=== PATIENT | female | born 1975 | race Caucasian/White ===

== ENCOUNTER 2020-07-05 16:40 | Outpatient (REF) | payer SELFPAY ==
[2020-07-08 22:12] LABS: SARS-CoV-2 RNA Undetected (Undetected); SARS-CoV-2 Specimen Source Nasal
== END 2020-07-05 17:00 ==
LOC: NCHCO 16:40
PROVIDERS: Visit Provider Nurse Practitioner Family
DX: Z11.59 Encounter for screening for other viral diseases (principal)
CPT/HCPCS: U0003

== ENCOUNTER 2020-12-07 02:27 | Outpatient (CLI) | payer MEDICAID, SELFPAY ==
[2020-12-07 15:30] LABS: Abs Immature Grans 0.04 10^3/uL (0.0-0.06); Absolute Eosinophil Count 0.27 10^3/uL (0.0-0.7); Absolute Lymphocyte Count 2.94 10^3/uL (1.2-3.4); Absolute Monocyte Count 0.72 10^3/uL (0.1-0.8); Absolute Neutrophil Count 6.93 10^3/uL (1.2-6.7); Basophils % 0.5; Eosinophils % 2.5; HCT 41.4 % (36.0-46.0); HGB 13.3 g/dL (11.2-15.7); Immature Grans % 0.4; Lymphocytes % 26.8; MCH 27.9 pg (27.0-33.0); MCHC 32.1 % (32.0-36.0); MCV 86.8 fL (80-95); MPV 10.6 fL (8.0-11.0); Monocytes % 6.6; Neutrophils % 63.2; Nucleated RBC 0 %; Platelet Count 456 10^3/uL (130-400); RBC 4.77 10^6/uL (3.93-5.22); RDW 14.2 % (11.7-14.6); RDW-SD 45.7 fL; WBC 10.96 10^3/uL (4.4-10.8)
[2020-12-07 15:36] LABS: Absolute Basophil Count 0.05 10^3/uL (0.0-0.2)
[2020-12-07 16:05] LABS: ALT 28 U/L (14-59); AST 13 U/L (15-37); Albumin 3.8 g/dL (3.4-5.0); Alkaline Phosphatase 103 U/L (46-116); Anion Gap 6.7 mmol/L (3-11); BUN 11 mg/dL (7-18); Bilirubin, Total 0.4 mg/dL (0.2-1.0); CO2 30.3 mmol/L (21.0-32.0); CREATININE 0.9 mg/dL (0.55-1.02); Calcium 9.4 mg/dL (8.5-10.1); Chloride 105 mmol/L (98-107); Glucose 105 mg/dL (74-106); Potassium 3.7 mmol/L (3.5-5.1); Sodium 142 mmol/L (136-145); Total Protein 7.4 g/dL (6.4-8.2)
== END 2020-12-07 02:28 | disposition home or self-care (01) ==
LOC: LBO 02:27
PROVIDERS: Visit Provider Nurse Practitioner Family
DX: M19.09 Primary osteoarthritis, other specified site (principal); Z79.1 Long term (current) use of non-steroidal anti-inflammatories (NSAID)
CPT/HCPCS: 36415; 80053; 85025

== ENCOUNTER 2021-07-08 14:49 | Outpatient (REF) | payer MEDICAID, SELFPAY | END 2021-07-08 14:50 | disposition home or self-care (01) | LOC: LBN 14:49 | PROVIDERS: Visit Provider Physician Assistant | DX: R30.0 Dysuria (principal) | CPT/HCPCS: 87077; 87086; 87186 ==

== ENCOUNTER 2022-05-01 16:43 | Outpatient (REF) | payer MEDICAID, SELFPAY ==
[2022-05-03 11:08] LABS: COVID-19 RT-PCR UVMMC Result Negative (Negative)
== END 2022-05-01 16:44 | disposition home or self-care (01) ==
LOC: LBN 16:43
PROVIDERS: Visit Provider Physician Assistant Medical
DX: Z20.822 Contact with and (suspected) exposure to COVID-19 (principal); J06.9 Acute upper respiratory infection, unspecified
CPT/HCPCS: U0003

== ENCOUNTER 2023-10-03 10:11 | Emergency (ER) | payer MEDICAID, SELFPAY ==
[2023-10-03 10:17] VITALS: BP 152/91; PULSE 70; RESP 16; TEMP 36.6; O2SAT 95
[2023-10-03 10:24] VITALS: BP 152/91; PULSE 70; RESP 16; TEMP 36.6; O2SAT 95
[2023-10-03] MEDS: Normal Saline 1,000 ML 1000 ML IV (10:59)
[2023-10-03] MEDS: diphenhydrAMINE 50 MG/ML VIAL 25 MG IV (11:00)
[2023-10-03] MEDS: Prochlorperazine 10 MG/2 ML VIAL IVP (11:00)
[2023-10-03] MEDS: Ketorolac 30 MG/ML VIAL IVP (11:01)
[2023-10-03 11:19] VITALS: BP 116/61; PULSE 79; RESP 24; O2SAT 98
--- NOTE | 2023-10-03 11:26 | ED.GENADUL_ITS ---
HPI General Date/Time Provider Initiated Documentation: 10/03/23 10:22 . Limitations to Documentation: no limitations . Information obtained by: patient . HPI Narrative: 48-year-old female with past medical history of migraine headaches presents for evaluation of headache. She reports symptoms started last night. Consistent with prior headaches. She took Motrin and Tylenol as she usually does, but this did not improve the symptoms. She reports that this morning the headache was significantly worse. She took a dose of Imitrex without relief. She has photophobia and nausea, no vomiting. No fever or neck stiffness. She reports that she previously was followed by neurology for her frequent headaches and that she last received a nerve block 5 years ago. Denies any sick symptoms, denies any trauma. Reports this is consistent with prior migraines. Related Data Home Medications Medication Instructions Recorded Confirmed lisinopril 10 tab 10/03/23 mg-hydrochlorothiazide 12.5 mg tablet sumatriptan succinate 50 mg tablet mg PO 10/03/23 thyroid (pork) 15 mg tablet (LUMBER CHAIN OFFBEARER mg 10/03/23 Thyroid) thyroid (pork) 90 mg tablet (LUMBER CHAIN OFFBEARER mg 10/03/23 Thyroid) Allergies Allergy/AdvReac Type Severity Reaction Status Date / Time No Known Allergies Allergy Unverified 10/03/23 10:15 General Stated Complaint: Headache SANCHEZ: 3 Exam Narrative Exam Narrative: Review of Systems: All systems reviewed & are unremarkable except as noted in HPI and below Well-developed, appears uncomfortable. Laying in dark room with eyes closed NACT PERRL, normal conjunctiva RRR Unlabored respiratory effort Nondistended abdomen Extremities w/o deformity, no cyanosis, no edema No rashes or lesions. no focal neurologic deficits, no meningeal signs Appropriate mood and affect Course Vital Signs Vital signs: Vital Signs Temperature 36.6 C 10/03/23 10:17 Pulse 70 10/03/23 10:17 Respiratory Rate 16 10/03/23 10:17 Blood Pressure 152/91 H 10/03/23 10:17 Pulse Oximetry 95 10/03/23 10:17 Temperature 36.6 C 10/03/23 10:24 Temperature Source Skin 10/03/23 10:24 Pulse 79 10/03/23 11:19 Respiratory Rate 24 10/03/23 11:19 Respiratory Effort Normal, Non-Labored 10/03/23 10:19 Blood Pressure 116/61 10/03/23 11:19 Pulse Oximetry 98 10/03/23 11:19 Oxygen Delivery Method Room Air 10/03/23 11:19 Oxygen Flow Rate 0 10/03/23 11:19 Pain Level 8 10/03/23 10:24 Medical Decision Making Emergent evaluation of headache. Initial differential includes migraine, doubt subarachnoid hemorrhage given that there was no acute onset. Doubt infectious etiology as there are no sick symptoms or meningeal signs. Symptoms are consistent with prior headaches and she has a longstanding history of migraines. I do not feel that additional workup or imaging is indicated at this time. Medications given for symptom relief. Will reassess 1200: On reevaluation, the patient's symptoms have improved significantly. She is able to sit up in bed, tolerate p.o., eyes are open. She states that she feels comfortable enough to go home now. A referral has been placed for neurology follow-up. Return precautions advised. Discharged in good condition. Medical Records Medical records reviewed: Yes I reviewed the patient's medical records. Quality:SDOH Health Related Social Needs: No Data to Display PFSH All Active Problems Migraine (Chronic) Social History Smoking/Tobacco Use Status: Never Smoking risk assessment performed?: Yes Alcohol Intake: current Alcohol Intake frequency: a few times a month Substance use type: does not use Housing: house Do you feel safe at home: Yes Do you feel safe in your relationship?: Yes PAWSS Have you Been Recently Intoxicated or Drunk Within the Last 30 days?: No Have you Ever Experienced Previous Episodes of Alcohol Withdrawal?: No Have you ever Experienced Withdrawal Seizures?: No Have you ever Experienced Delirium Tremens(DT)s?: No Have you ever undergone Alcohol Rehabilitation Treatment (i.e, inpt ot outpatient treatment programs)?: No Have you ever Experienced Blackouts?: No Have you ever Combined Alcohol with other Downers within the last 90 days?: No Have you ever Combined Alcohol with any other Substance of Abuse during the last 90 days?: No Positive Blood Alcohol level on Presentation? [PCS.BAL]: No Evidence of Increased Autonomic Activity (i.e. HR>120, tremor, sweating, agitation, nausea)?: No Result: 0 Discharge Plan Disposition Patient Disposition: Home Discharge Details Clinical Impression: Migraine Primary Care Provider: Unknown,Unknown ED Provider: Román Julien Home Meds and New Rx's Prescriptions: No Action sumatriptan succinate 50 mg tablet PO Patient Comments: TAKE 1 TABLET BY MOUTH NEEDED FOR HEADACHE, MAY REPEAT IN 2 HOURS IF NEEDED. MAX OF TWO TABLETS DAILY lisinopril-hydrochlorothiazide 10-12.5 mg tablet Patient Comments: TAKE ONE TABLET BY MOUTH EVERY DAY thyroid (pork) [LUMBER CHAIN OFFBEARER Thyroid] 15 mg tablet Patient Comments: TAKE ONE TABLET BY MOUTH EVERY DAY TAKE WITH 90MG TABLET FOR TOTAL DOSE OF 105MG DAILY thyroid (pork) [LUMBER CHAIN OFFBEARER Thyroid] 90 mg tablet Discharge Instructions Instructions: General Headache (ED) Additional Instructions: Please continue medications as prescribed. Drink plenty of water. Make follow- up appointment with neurology for repeat occipital nerve block injection Referrals: Jaida Camargo MD [ [facility] STAFF PHYSICIAN] -
[2023-10-03 11:31] VITALS: BP 115/59; PULSE 61; PULSE 63; RESP 18; O2SAT 99
[2023-10-03 11:46] VITALS: BP 110/57; PULSE 60; PULSE 65; RESP 22; O2SAT 96
--- NOTE | 2023-10-03 11:58 | NUR.NOTE ---
Pt referred to Neurology for a follow up for her migraines in their next available time slot.
[2023-10-03 12:01] VITALS: BP 113/52; PULSE 61; RESP 22; TEMP 36.5; O2SAT 96
== END 2023-10-03 12:13 | disposition home or self-care (01) ==
PROVIDERS: Emergency Provider Emergency Medicine
DX: G43.909 Migraine, unspecified, not intractable, without status migrainosus; R11.0 Nausea
CPT/HCPCS: 96361; 96374; 96375; 99284; J0780; J1200; J1885

== ENCOUNTER 2024-05-26 13:46 | Emergency (ER) | payer MEDICAID, SELFPAY ==
[2024-05-26 14:00] VITALS: BP 124/79; PULSE 97; RESP 18; TEMP 36.6; O2SAT 97
--- NOTE | 2024-05-26 14:33 | W.ED.GENAD ---
Discharge Plan Disposition Patient Disposition: Home Condition: Stable Discharge Details Clinical Impression: COVID Primary Care Provider: Unknown,Unknown ED Provider: Bulamro Sorenson Home Meds and New Rx's Prescriptions: Continued sumatriptan succinate 100 mg tablet See Rx Instructions PO .COMPLEX Qty: 14 3RF Rx Instructions: take 1 tab at onset of headache; if no relief, may repeat 1 tab after at least 2 hrs; max = 2 tabs/24 hrs PO lisinopril-hydrochlorothiazide 10-12.5 mg tablet 1 tab PO DAILY Patient Comments: TAKE ONE TABLET BY MOUTH EVERY DAY thyroid (pork) [SHOWER ENCLOSURE INSTALLER Thyroid] 15 mg tablet 150 mg PO DAILY Patient Comments: TAKE ONE TABLET BY MOUTH EVERY DAY TAKE WITH 90MG TABLET FOR TOTAL DOSE OF 105MG DAILY Discharge Instructions Additional Instructions: You are COVID-positive. Rest, plenty of fluids, [id number] medication for symptomatic control. We discussed the use of Paxlovid and you declined at this time. Please watch for new or worsening symptoms and return to the ER for any concerns. Lastly, please contact your primary care provider later today or tomorrow to discuss your ER visit, ongoing symptoms, and need for outpatient care. HPI General Mode of arrival: ambulatory. Date/Time Provider Initiated Documentation: 05/26/24 14:01. Limitations to Documentation: no limitations. Information obtained by: patient. History of Present Illness 49 year old F presents to the emergency department with the chief complaint of Viral illness and headache, described as moderate, with intensity rated at 6. Quality is described as aching, and is localized to the head. Patient reports no radiation. Patient started experiencing this day(s) (Four) and it has been constant. No relieving factors improve symptom(s), No exacerbating factors reported . Patient notes cough (Mild, dry), fever/chills (Subjective), headaches and malaise; denies shortness of breath. Patient did receive the following treatments prior to arrival, NSAID and other (Imitrex) Related Data Home Medications ?Medication ?Instructions ?Recorded ?Confirmed lisinopril 10 1 tab PO DAILY 10/03/23 05/26/24 mg-hydrochlorothiazide 12.5 mg tablet thyroid (pork) 15 mg tablet (SHOWER ENCLOSURE INSTALLER 150 mg PO DAILY 10/03/23 05/26/24 Thyroid) sumatriptan succinate 100 mg tablet See Rx Instructions PO .COMPLEX 12/24/23 05/26/24 #14 tabs Previous Rx's ?Medication ?Instructions ?Recorded sumatriptan succinate 100 mg tablet See Rx Instructions PO .COMPLEX 12/24/23 #14 tabs Allergies Allergy/AdvReac Type Severity Reaction Status Date / Time No Known Allergies Allergy Unverified 05/26/24 14:05 General Stated Complaint: Headache SANCHEZ: 4 Review of Systems Constitutional Constitutional: Reports fever(s) (Subjective), Reports headache(s) and Denies weakness ENT Ears, Nose, Mouth, and Throat: Reports headache(s) and Reports sore throat (Mild, scratchy) Cardiovascular Cardiovascular: Denies chest pain and Denies dyspnea Respiratory Respiratory: Reports cough and Denies dyspnea Gastrointestinal Gastrointestinal: Denies abdominal pain, Reports diarrhea (Intermittent, resolved) and Denies nausea Musculoskeletal Musculoskeletal: Reports myalgias Integumentary/Breasts Skin/Breast: Denies rash Neurologic Neurologic: Reports headache(s) and Denies weakness Exam Const General: cooperative, healthy appearing, comfortable and no acute distress Orientation: alert, awake and oriented x3 HENMT Head: normal to inspection, normocephalic and atraumatic General nose exam: external nose normal Face and sinus: normal facial exam Mouth: oral mucosae normal and moist mucous membranes Throat: posterior oropharynx normal and no peritonsillar masses Eyes General: appearance normal, both eyes and all related structures Conjunctivae: conjunctivae normal Neck Neck: normal visual inspection, full ROM, no lymphadenopathy, no meningeal signs, trachea midline and supple Resp Effort & Inspection: normal respiratory effort and able to speak in complete sentences Auscultation: clear to auscultation bilaterally and other (Mild dry cough noted) Cardio Rate: regular rate Rhythm: regular rhythm GI Palpation: soft and nontender Skin General skin exam: no rashes or lesions noted Neuro General: patient alert, patient awake, moves all extremities and no focal motor deficits Sensory Exam: no sensory deficits noted Psych Appearance: grossly normal Mental Status: mental status grossly normal Course Vital Signs Vital signs: Vital Signs Temperature 36.6 C 05/26/24 14:00 Pulse 97 H 05/26/24 14:00 Respiratory Rate 18 05/26/24 14:00 Blood Pressure 124/79 05/26/24 14:00 Pulse Oximetry 97 05/26/24 14:00 Temperature 36.6 C 05/26/24 14:00 Pulse 97 H 05/26/24 14:00 Respiratory Rate 18 05/26/24 14:00 Respiratory Effort Normal 05/26/24 14:06 Blood Pressure 124/79 05/26/24 14:00 Pulse Oximetry 97 05/26/24 14:00 Oxygen Delivery Method Room Air 05/26/24 14:00 Oxygen Flow Rate 0 05/26/24 14:00 Pain Level 8 05/26/24 14:00 Medical Decision Making 49-year-old female, non-smoker, past medical history of hypertension and migraines, presents for viral illness for the past 4 days. Patient reports multiple mild symptoms such as headache, sore throat, dry cough, myalgias, subjective fever, etc. States that her headache feels different than her typical migraine. Denies trauma. Has tried [id number] Tylenol and Motrin as well as her prescribed Imitrex. States that medications have helped to decrease her symptoms and take the edge off but still not feeling well, difficulty sleeping. Patient appears well, nontoxic, neurologically intact. Is agreeable to COVID, flu, RSV testing. Also agreeable to a Benadryl, Toradol, Reglan migraine cocktail. COVID-positive. Discussed in length with patient. Using shared decision making, patient deferred not to start Paxlovid. Discussed the importance of adequate hydration, gqhe-[id number] medications for symptomatic control, and resting. Patient received IM Toradol, Reglan, Benadryl, is driving her home and she did not want to wait any longer in the ER for the medication to take effect. Flu and RSV negative Standard discharge and return precautions were provided. Patient understands, is agreeable to this plan, and has no additional questions or concerns upon discharge. This documentation was generated using Donayation system, please disregard any oddities of phrase or misspellings. Medical Records Medical records reviewed: Yes I reviewed the patient's medical records. Quality:SDOH Health Related Social Needs: No Data to Display PFSH All Active Problems (Updated 05/26/24 @ 14:59 by CHARU Hannon) COVID (Acute) Occipital headache (Acute) Migraine headache without aura (Acute) Social History Smoking/Tobacco Use Status: Never Smoking risk assessment performed?: Yes Alcohol Intake: current Alcohol Intake frequency: a few times a month Drug use: Never Substance use type: does not use Housing: house Do you feel safe at home: Yes Do you feel safe in your relationship?: Yes
[2024-05-26 14:43] LABS: Influenza A PCR Negative (Negative); Influenza B PCR Negative (Negative); RSV PCR Negative (Negative)
[2024-05-26 14:50] LABS: COVID-19 PCR Positive (Negative)
[2024-05-26 14:51] LABS: Source Nasopharynx
[2024-05-26] MEDS: diphenhydrAMINE 50 MG/ML VIAL IM (15:09)
[2024-05-26] MEDS: Ketorolac 60 MG/2 ML VIAL IM (15:09)
[2024-05-26] MEDS: Metoclopramide 10 MG/2 ML VIAL 20 MG IM (15:10)
== END 2024-05-26 15:35 | disposition home or self-care (01) ==
PROVIDERS: Emergency Medicine; Emergency Provider Physician Assistant
DX: G43.909 Migraine, unspecified, not intractable, without status migrainosus (principal); U07.1 COVID-19; I10 Essential (primary) hypertension
CPT/HCPCS: 87637; 96372; 99284; 99283; J1200; J1885; J2765

== ENCOUNTER 2024-10-24 12:09 | Emergency (ER) | payer MEDICAID, SELFPAY ==
[2024-10-24] VITALS (21 sets, daily range): BP systolic 115–137; BP diastolic 52–93; PULSE 58–81; RESP 13–25; TEMP 36.6; O2SAT 94–98
--- NOTE | 2024-10-24 12:15 | RT.EKG_ITS ---
APPROVED REPORT Exam: Resting ECG Reason for Exam: syncope Patient Location: E HR:73 bpm ECG Measurements Heart Rate 73 AXIS ID 159 P 51 QRSd 113 QRS -18 QT 406 T 2 QTc 447 Conclusion Sinus rhythm. 73 RBBB no stemi
--- NOTE | 2024-10-24 13:15 | DI.CT_ITS ---
Exam(s) CT HEAD CERVICAL SPINE WO EXAM: CT HEAD CERVICAL SPINE WO CLINICAL HISTORY: HEAD INJURY. TECHNIQUE: Imaging Protocol: Axial computed tomography images with coronal and sagittal reformatted images were created and reviewed COMPARISON: No exams were available for comparison FINDINGS: BRAIN: There are no skull fractures nor fluid in the visualized paranasal sinuses. There is no evidence of intracranial hemorrhage, mass effect, or shift of midline structures. There are no extra-axial fluid collections. The ventricles are not enlarged or shifted and there is no blo od within the ventricular system nor within the basal cisterns. CERVICAL SPINE: There is no evidence of fracture nor listhesis. No significant prevertebral soft tissue swelling. There is no significant facet joint malalignment. No significant osseous lesions evident. IMPRESSION: No acute intracranial findings on this noninfused CT scan of the brain. No evidence of cervical spine fracture, malalignment, nor acute compromise of the cervical spinal can al. Report called by myself to ER 10/24/2024 at 2:30 p.m. RADIATION DOSE DELIVERED: 1,426.41mGy.cm Total DLP DATA REPOSITORY: All CT scans at this facility are submitted to the National Radiology Data Registry (NRDR) Dose Index Registry (DIR) with the [employer] ([employer]). RADIATION OPTIMIZATION: All CT scans at this facility use at least one of these dose optimization te chniques: automated exposure control; mA and/or kV adjustment per patient size (includes targeted exa ms where dose is matched to clinical indication); or iterative reconstruction.
[2024-10-24 14:39] LABS: Abs Immature Grans 0.04 10^3/uL (0.0-0.06); Absolute Basophil Count 0.05 10^3/uL (0.0-0.2); Absolute Eosinophil Count 0.13 10^3/uL (0.0-0.7); Absolute Lymphocyte Count 2.74 10^3/uL (1.2-3.4); Absolute Monocyte Count 0.54 10^3/uL (0.1-0.8); Absolute Neutrophil Count 6.14 10^3/uL (1.2-6.7); Basophils % 0.5 %; Eosinophils % 1.3 %; HCT 44.6 % (36.0-46.0); HGB 14.5 g/dL (11.2-15.7); Immature Grans % 0.4 %; Lymphocytes % 28.4 %; MCH 27.7 pg (27.0-33.0); MCHC 32.5 % (32.0-36.0); MCV 85 fL (80-95); MPV 10.8 fL (8.0-11.0); Monocytes % 5.6 %; Neutrophils % 63.8 %; Platelet Count 386 10^3/uL (130-400); RBC 5.24 10^6/uL (3.93-5.22); RDW 13.6 % (11.7-14.6); RDW-SD 42.3 fL; WBC 9.64 10^3/uL (4.4-10.8)
[2024-10-24 14:50] LABS: ALT 26 U/L (14-59); AST 12 U/L (15-37); Albumin 3.6 g/dL (3.4-5.0); Alkaline Phosphatase 69 U/L (46-116); BUN 11 mg/dL (7-18); Bilirubin, Total 0.33 mg/dL (0.2-1.0); CREATININE 0.9 mg/dL (0.55-1.02); Calcium 9.4 mg/dL (8.5-10.1); Chloride 105 mmol/L (98-107); Glucose 90 mg/dL (74-106); Magnesium 2.2 mg/dL (1.8-2.4); Potassium 3.4 mmol/L (3.5-5.1); Sodium 144 mmol/L (136-145); Total Protein 7.8 g/dL (6.4-8.2); Troponin I 12 ng/L (<or=51)
--- NOTE | 2024-10-24 16:24 | W.ED.GENAD ---
Discharge Plan Disposition Patient Disposition: Home Condition: Stable Discharge Details Clinical Impression: Syncope, CHI (closed head injury) Primary Care Provider: RAYSHAWN CASAS ED Provider: Román Julien Home Meds and New Rx's Prescriptions: No Action sumatriptan succinate 100 mg tablet See Rx Instructions PO .COMPLEX Qty: 14 3RF Rx Instructions: take 1 tab at onset of headache; if no relief, may repeat 1 tab after at least 2 hrs; max = 2 tabs/24 hrs PO lisinopril-hydrochlorothiazide 10-12.5 mg tablet 1 tab PO DAILY Patient Comments: TAKE ONE TABLET BY MOUTH EVERY DAY thyroid (pork) [CASHIER HOST/HOSTESS Thyroid] 15 mg tablet 150 mg PO DAILY Patient Comments: TAKE ONE TABLET BY MOUTH EVERY DAY TAKE WITH 90MG TABLET FOR TOTAL DOSE OF 105MG DAILY thyroid (pork) [CASHIER HOST/HOSTESS Thyroid] 90 mg tablet 90 mg PO DAILY Patient Comments: TAKE ONE TABLET BY MOUTH EVERY DAY WITH 15MG TABLET Discharge Instructions Instructions: Fainting, Adult ED Additional Instructions: Your workup after your passing out episode is reassuring You likely have some's minor symptoms of concussion Please continue to treat with Motrin and Tylenol lots of fluids and rest. You can try her sumatriptan hand as needed to help with headache Please follow-up with your PCP this week for reevaluation of symptoms and repeat Holter monitor. Return to the if any recurrence of symptoms occurs HPI General Date/Time Provider Initiated Documentation: 10/24/24 12:14. Limitations to Documentation: no limitations. Information obtained by: patient. HPI Narrative: 49-year-old female with past medical history of hide migraine headaches presents for evaluation after a syncopal episode. She reports that yesterday she was at a friend's house. She had an upsetting and stressful conversation when her son. She states that after the conversation she felt very flushed and warm. She took of her sweatshirt and she felt like she needs to go to the bathroom. She got up to walk to the bathroom at which point she passed out. She fell backwards hitting her head on the chair. She was able to shortly after regaining consciousness. She did not want to come to the hospital at that time. She reports that she stayed home and rested. She reports that she has had a headache and some nausea. She denies any preceding chest pain. She has not had chest pain since that time or any palpitations. Related Data Home Medications ?Medication ?Instructions ?Recorded ?Confirmed lisinopril 10 1 tab PO DAILY 10/03/23 10/24/24 mg-hydrochlorothiazide 12.5 mg tablet thyroid (pork) 15 mg tablet (CASHIER HOST/HOSTESS 150 mg PO DAILY 10/03/23 10/24/24 Thyroid) sumatriptan succinate 100 mg tablet See Rx Instructions PO .COMPLEX 12/24/23 10/24/24 #14 tabs thyroid (pork) 90 mg tablet (CASHIER HOST/HOSTESS 90 mg PO DAILY 10/24/24 10/24/24 Thyroid) Previous Rx's ?Medication ?Instructions ?Recorded sumatriptan succinate 100 mg tablet See Rx Instructions PO .COMPLEX 12/24/23 #14 tabs Allergies Allergy/AdvReac Type Severity Reaction Status Date / Time No Known Allergies Allergy Unverified 10/24/24 12:26 General Stated Complaint: [id number] SANCHEZ: 2 Exam Narrative Exam Narrative: Review of Systems: All systems reviewed & are unremarkable except as noted in HPI and below Well-developed, no acute distress NCAT mild tenderness to the posterior scalp without any obvious hematoma PERRL, normal conjunctiva RRR, no murmur Unlabored respiratory effort, clear bilaterally Nondistended abdomen , soft nontender no focal neurologic deficits Course Vital Signs Vital signs: Vital Signs Temperature 36.6 C 10/24/24 12:10 Pulse 74 10/24/24 12:10 Respiratory Rate 14 10/24/24 12:10 Blood Pressure 137/93 H 10/24/24 12:10 Pulse Oximetry 97 10/24/24 12:10 Temperature 36.6 C 10/24/24 12:10 Temperature Source Oral 10/24/24 12:10 Pulse 71 10/24/24 15:50 Pulse 72 10/24/24 15:50 Respiratory Rate 16 10/24/24 16:10 Respiratory Effort Normal 10/24/24 16:10 Respiratory Depth Normal 10/24/24 16:10 Respiratory Pattern Normal 10/24/24 16:10 Blood Pressure 115/52 L 10/24/24 13:51 Blood Pressure Mean 73 10/24/24 13:51 Blood Pressure Position Sitting 10/24/24 12:10 Pulse Oximetry 96 10/24/24 15:50 Oxygen Delivery Method Room Air 10/24/24 16:10 Oxygen Flow Rate 0 10/24/24 16:10 Pain Level 7 10/24/24 12:10 Lab/Test Results Lab/Test Results: Laboratory Tests Range/Units 10/24/24 13:29 WBC (4.4-10.8) 10^3/uL 9.64 RBC (3.93-5.22) 10^6/uL 5.24 H Hgb (11.2-15.7) g/dL 14.5 Hct (36.0-46.0) % 44.6 MCV (80-95) fL 85 MCH (27.0-33.0) pg 27.7 MCHC (32.0-36.0) % 32.5 RDW (11.7-14.6) % 13.6 Plt Count (130-400) 10^3/uL 386 MPV (8.0-11.0) fL 10.8 Immature Gran % % 0.4 Neutrophils % % 63.8 Lymphocytes % % 28.4 Monocytes % % 5.6 Eosinophils % % 1.3 Basophils % % 0.5 Nucleated RBC % (0.0-0.3) % 0.0 Absolute Neutrophils (1.2-6.7) 10^3/uL 6.14 Absolute Lymphocytes (1.2-3.4) 10^3/uL 2.74 Absolute Monocytes (0.1-0.8) 10^3/uL 0.54 Absolute Eosinophils (0.0-0.7) 10^3/uL 0.13 Absolute Basophils (0.0-0.2) 10^3/uL 0.05 Sodium (136-145) mmol/L 144 Potassium (3.5-5.1) mmol/L 3.4 L Chloride (98-107) mmol/L 105 Carbon Dioxide (21.0-32.0) mmol/L 36.0 H Anion Gap (3-11) mmol/L 3.0 BUN (7-18) mg/dL 11 Creatinine (0.55-1.02) mg/dL 0.9 Est GFR (CKD-EPI 2020) (mL/min/1.73m2) 77.40 Glucose (74-106) mg/dL 90 Calcium (8.5-10.1) mg/dL 9.4 Magnesium (1.8-2.4) mg/dL 2.2 Total Bilirubin (0.2-1.0) mg/dL 0.33 AST (15-37) U/L 12 L ALT (14-59) U/L 26 Alkaline Phosphatase (46-116) U/L 69 Troponin I (<or=51) ng/L 12 Total Protein (6.4-8.2) g/dL 7.8 Albumin (3.4-5.0) g/dL 3.6 Medical Decision Making Emergent evaluation of syncopal episode. Patient arrives with a normal EKG, hemodynamically stable. The EKG was reviewed and independently interpreted: Sinus 73 right bundle branch block, no acute ischemic changes normal OK and intervals. She has some tenderness to her scalp, but no obvious deformity. The initial differential includes vasovagal episode, syncope, dysrhythmia. She was evaluated with lab work including cardiac biomarker which was not elevated. No significant electrolyte derangement. She was monitored on telemetry without any dysrhythmias noted. She was sent for CT imaging after her head injury and this did not reveal an acute traumatic injury. I feel she is stable for discharge home but recommend close follow-up with PCP for reevaluation and possible outpatient Holter monitor. Quality:SDGA Health Related Social Needs: No Data to Display PFSH All Active Problems (Updated 10/24/24 @ 15:51 by Román Julien MD) CHI (closed head injury) (Acute) Syncope (Chronic) COVID (Acute) Occipital headache (Acute) Migraine headache without aura (Acute) Social History Smoking/Tobacco Use Status: Never Smoking risk assessment performed?: Yes Alcohol Intake: current Alcohol Intake frequency: a few times a month Drug use: Never Substance use type: does not use Housing: house Do you feel safe at home: Yes Do you feel safe in your relationship?: Yes
== END 2024-10-24 16:33 | disposition home or self-care (01) ==
PROVIDERS: Emergency Provider Emergency Medicine; PCP Registered Nurse
DX: S09.8XXA Other specified injuries of head, initial encounter (principal); R55 Syncope and collapse; W01.198A Fall on same level from slipping, tripping and stumbling with subsequent striking against other object, initial encounter
CPT/HCPCS: 80053; 93005; 99284; 70450; 72125; 83735; 84484; 85025; 93010

== ENCOUNTER 2025-03-30 07:22 | Emergency (ER) | payer MEDICAID, SELFPAY ==
[2025-03-30 07:23] VITALS: BP 117/64; PULSE 68; RESP 16; TEMP 36; O2SAT 97
--- NOTE | 2025-03-30 07:30 | DI.RAD_ITS ---
Exam(s) XR ELBOW RT COMPLETE EXAM: XR ELBOW RT COMPLETE CLINICAL HISTORY: pain after blunt trauma. TECHNIQUE: 2D digital imaging was performed. Three views. COMPARISON: No exams were available for comparison FINDINGS: BONES: No acute fracture is present. No bony destructive lesion is seen. There is spurring at the epicondyles. JOINTS: The elbow is normally aligned. No joint effusion is seen. SOFT TISSUE: Normal. IMPRESSION: No acute abnormality DATA REPOSITORY: RADIATION DOSE DELIVERED:
--- NOTE | 2025-03-30 07:30 | DI.RAD_ITS ---
Exam(s) XR SHOULDER RT COMPLETE 2+V EXAM: XR SHOULDER RT COMPLETE 2+V CLINICAL HISTORY: pain after blunt trauma. TECHNIQUE: 2D digital imaging was performed. Five views. COMPARISON: No exams were available for comparison FINDINGS: BONES: No acute fracture is present. No bony destructive lesion is seen. JOINTS: No dislocation present. The glenohumeral joint space is maintained. There is mild spurring at the glenoid, greater tuberosity and undersurface of the acromion. SOFT TISSUE: Normal. IMPRESSION: No acute abnormality. DATA REPOSITORY: RADIATION DOSE DELIVERED:
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
[2025-03-30 08:36] VITALS: BP 126/49; PULSE 64; RESP 18; O2SAT 98
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
== END 2025-03-30 08:37 | disposition home or self-care (01) ==
PROVIDERS: Emergency Provider Emergency Medicine; PCP Registered Nurse
DX: S40.011A Contusion of right shoulder, initial encounter (principal); V86.19XA Passenger of other special all-terrain or other off-road motor vehicle injured in traffic accident, initial encounter
CPT/HCPCS: 99283; 73030; 73080